=== PATIENT | female | born 1940 | race Caucasian/White ===

== ENCOUNTER 2018-05-19 09:30 | Emergency (ER) | payer MEDICARE, OTHER ==
--- NOTE | 2018-05-19 12:23 | RAD ---
AP PELVIS: Indication: History of fall with pelvic pain. FINDINGS: There is a small medicinal tablets seen within the lower left hemipelvis and right lower quadrant of the abdomen, likely within loops of small bowel as well as portions of the colon. There is diffuse osteopenia. There is mild degenerative change of both hips. No acute fracture or sub luxation is grossly evident. IMPRESSION: No acute osseous abnormality. POS: [facility]
== END 2018-05-19 12:31 | disposition home or self-care (01) ==
LOC: ERS 09:30
DX: M54.5 Low back pain (principal); I25.2 Old myocardial infarction; I25.10 Atherosclerotic heart disease of native coronary artery without angina pectoris; I10 Essential (primary) hypertension; Z79.899 Other long term (current) drug therapy; Z79.82 Long term (current) use of aspirin; W06.XXXA Fall from bed, initial encounter
CPT/HCPCS: 72170

== ENCOUNTER 2021-03-23 08:54 | Outpatient (CLI) | payer MEDICARE, OTHER ==
[2021-03-23 18:29] LABS: SARS-CoV-2 PCR by NAA Not Detected (NotDetected)
== END 2021-03-23 08:55 | disposition home or self-care (01) ==
LOC: LABBT 08:54
PROVIDERS: ATTEND Physician Assistant Medical
DX: Z01.812 Encounter for preprocedural laboratory examination (principal); K59.00 Constipation, unspecified; K44.9 Diaphragmatic hernia without obstruction or gangrene; R13.12 Dysphagia, oropharyngeal phase; R13.19 Other dysphagia; Z20.822 Contact with and (suspected) exposure to COVID-19
CPT/HCPCS: U0003; U0005

== ENCOUNTER → 2021-03-28 | Day surgery (SDC) | payer MEDICARE, OTHER | LOC: SDC 12:52 | PROVIDERS: ATTEND Physician Assistant Medical | DX: K44.9 Diaphragmatic hernia without obstruction or gangrene (principal); R13.12 Dysphagia, oropharyngeal phase; R13.19 Other dysphagia; K59.00 Constipation, unspecified; K21.9 Gastro-esophageal reflux disease without esophagitis; I11.0 Hypertensive heart disease with heart failure; I50.9 Heart failure, unspecified; I25.10 Atherosclerotic heart disease of native coronary artery without angina pectoris; E11.9 Type 2 diabetes mellitus without complications; E78.00 Pure hypercholesterolemia, unspecified; I25.2 Old myocardial infarction; Z87.891 Personal history of nicotine dependence; Z79.82 Long term (current) use of aspirin; Z79.84 Long term (current) use of oral hypoglycemic drugs; Z79.899 Other long term (current) drug therapy; Z88.5 Allergy status to narcotic agent | CPT/HCPCS: 91010 ==

== ENCOUNTER 2024-02-11 11:02 | Outpatient (CLI) | payer MEDICARE, OTHER ==
[2024-02-11] MEDS ORDERED: Barium Sulfate 96% 176 GM BOT (xray ONLY) ONE (11:27)
== END 2024-02-11 11:03 | disposition home or self-care (01) ==
LOC: RAD 11:02
PROVIDERS: ATTEND Internal Medicine Gastroenterology
DX: R13.12 Dysphagia, oropharyngeal phase (principal); K21.9 Gastro-esophageal reflux disease without esophagitis
CPT/HCPCS: 74230